=== PATIENT | male | born 1980 | race Caucasian/White ===

== ENCOUNTER 2016-05-31 07:27 | Day surgery (SDC) | payer MEDICAID ==
[~2016-05-31] VITALS: Ht 167.6 cm; Wt 81.6 kg
--- NOTE | 2016-05-31 07:55 | HP ---
PATIENT: MARLEAN MARTINEZ I MEDICAL RECORD: [id number] ACCOUNT: [id number] LOCATION:[facility] : 78 ADMISSION DATE: 05/31/16 HISTORY AND PHYSICAL EXAMINATION Preoperative History and Physical HISTORY OF PRESENT ILLNESS: Marlena is a 35-year-old male, who has had problems with sleep apnea, tonsillar hypertrophy, airway obstruction, nasal obstruction and septal deviation. He is being admitted for septoplasty, tonsillectomy and uvulectomy. PAST MEDICAL HISTORY: Otherwise negative. CURRENT MEDICATIONS: None. ALLERGIES: No known drug allergies. PHYSICAL EXAMINATION: GENERAL: Healthy-appearing, developmentally normal. Mouth breather. FACE: Normal and symmetric. EYES: Sclerae and conjunctivae are normal. EARS: Canals and TMs are normal. NOSE: Severe right septal deviation. ORAL CAVITY AND OROPHARYNX: Large tonsils and swollen uvula. NECK: No masses, no adenopathy. CHEST: Clear. CARDIOVASCULAR: Regular rate and rhythm. No murmur. EXTREMITIES: Normal. IMPRESSION: Sleep apnea, recurrent uvula edema, tonsillar hypertrophy, nasal obstruction and septal deviation. PLAN: Septoplasty, tonsillectomy, uvulectomy and turbinate reduction. 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
[2016-05-31 10:48] VITALS: BP 119/65; Ht 167.6 cm; Wt 81.6 kg
--- NOTE | 2016-05-31 17:53 | NUR ---
1456--PT COMPLAINS OF PAIN 6/10, HYDROCODONE 15MLS OF 7.5/325 GIVEN PO. WILL CONTINUE TO MONITOR. EDITH GANDHI 1605--PT RATES PAIN 3/10 AND EXPRESSES RELIEF OF PAIN, IV DC'D. DISCHARGE INSTRUCTIONS GIVEN, PT VERBALIZES UNDERSTANDING. PT OFF UNIT VIA WC. EDITH GANDHI
--- NOTE | 2016-06-28 13:10 | OP ---
PATIENT NAME: OVIDIO MARTINEZ I MEDICAL RECORD: [id number] :78 [facility]: SURGEON: HERNAN REZA MD DATE OF OPERATION: 05/31/2016 PREOPERATIVE DIAGNOSES: Nasal obstruction, chronic tonsillitis and recurrent uvula edema. POSTOPERATIVE DIAGNOSES: Nasal obstruction, chronic tonsillitis and recurrent uvula edema. PROCEDURES: Septoplasty, tonsillectomy and excision of the uvula. COMPLICATIONS: None. DISPOSITION: Recovery, stable. SURGEON: Hernan Reza MD. ANESTHESIA: General orotracheal. BLOOD LOSS: Less than 5 cc. SPECIMENS: Right and left tonsil. NASAL PACKING: Reeves splints bilaterally. DESCRIPTION OF PROCEDURE: The patient brought to the operating room and placed in supine position, sedated and intubated by anesthesia. The table was turned 90 degrees. Both sides of the nose were examined. He had been decongested with Afrin preoperatively. Using a headlight and nasal speculum, the septum, floor of the nose and inferior turbinates were injected with a total of 1.5 cc of 1% lidocaine with 1:100,000 epinephrine and Afrin. Two Afrin pledgets were placed in each side of the nose. The patient was then positioned for tonsillectomy. Using a headlight, a Chava-Damian mouth gag was carefully inserted and elevated on a towel on his chest. The palate was examined and palpated, it was normal. The palate was retracted. A mirror was used to examine the nasopharynx. There was no significant adenoid tissue. The very posterior aspect of the inferior turbinates was cauterized with suction cautery bilaterally. The right tonsil was then grasped with a straight Allis clamp. Spatula tip cautery on a setting of 9 was used to dissect out the tonsil along its capsule, preserving the anterior and posterior tonsillar pillars. The left tonsil was removed in the same fashion. There was an abscess encountered in the left tonsil that was drained. The both sides of the pharynx were irrigated with saline. Tonsillar fossae were agitated and suction cautery on a setting of 20 was used to control any oozing. Then, the uvula was grasped ____. A spatula tip cautery on a setting of 10 was used to make an incision across the mucosa preserving all the mucosa of the nasopharynx and really just taking the majority of the uvula there. There was no bleeding. The uvula defect was then closed with interrupted 4-0 Vicryl approximating mucosal edges across the uvula in interrupted fashion. Then, the Chava-Damian mouth gag was let down and removed. History positioned for septoplasty. All the Afrin pledgets were removed. Using a nasal speculum, both sides of the nose were examined. A right-sided [place] incision was made and ipsilateral mucoperichondrial flap was elevated. A Harper was used to divide and resect some of the redundant cartilage that was rolled OPERATIVE REPORT [id number] OVIDIO MARTINEZ I out into the nasal passage on the right and then a chisel was used to remove that large bony spur inferiorly and then the bony cartilaginous junction was disarticulated. The posterior mucoperichondrial flap was elevated. Some bony septal deviation was removed and then some relaxing incisions were made in the anterior septal cartilage. Inferiorly, the septal cartilage was trimmed off, so it could be moved over to the midline over the maxillary spine and with this, the septum was reduced to the midline. A [place] incision was closed with interrupted 4-0 Vicryl, then both inferior turbinates were outfractured with a Gray elevator and some of the polypoid changes posteriorly were cauterized with suction cautery on a setting of 25. There was no bleeding. Reeves splints with mupirocin ointment were placed bilaterally and sutured through the anterior membranous septum with a 2-0 Prolene on a See needle. The pharynx was suctioned. The field was cleaned and dried. The patient was awakened, extubated, and transported to recovery in good condition. No complications. TRANSINT:[id number] Voice Confirmation ID: [id number] DOCUMENT ID: [id number] HERNAN REZA MD at 1310 CC: [id number] DICTATION DATE: 05/31/16 135 [employer] VEH[employer] ESCORT DRIVER: 05/31/16 2140 [facility] 05/31/16 [facility] [address] [id number]
== END 2016-05-31 16:05 | disposition home or self-care (01) ==
LOC: D.OPS 07:27 → D.PAN 08:30 → D.OPS 10:05 → D.PAN 11:25 → D.OPS 16:05
DX: J34.89 Other specified disorders of nose and nasal sinuses (principal); J35.01 Chronic tonsillitis; K13.79 Other lesions of oral mucosa